=== PATIENT | female | born 1940 | race Caucasian/White ===

== ENCOUNTER 2017-09-06 12:41 | Inpatient (IN) ==
[2017-09-06] MEDS ORDERED: 0.9 % Sodium Chloride 1,000 ML IVC ONE (14:49)
--- NOTE | 2017-09-06 14:54 | Emergency Department Note ---
Disposition Clinical Impression: Colitis, Clostridium difficile infection Pancreatitis Qualifiers: Chronicity: acute Disposition: Admitted As Inpatient Condition: Good Referrals: Kaycee Wu MD [Primary Care Provider] - Forms: ED Satisfaction Letter Time of Disposition: 18:04 General Adult HPI - General Chief complaint: ED Nausea/Vomiting/Diarrhea Stated complaint: "c-diff", diarrhea Time Seen by Provider: 09/06/17 14:22 Source: patient, family Mode of arrival: ambulatory Limitations: no limitations Nursing Notes Reviewed: Yes Vital Signs Reviewed: Yes - History of Present Illness HPI Narrative: Patient presents to the ED with the chief complaint of continued diarrhea. Patient states that she was diagnosed with C. difficile about a month ago and is currently on her third round of antibiotics and she is currently taking by mouth vancomycin. She c/o epigastric pain but this has been ongoing and is not worse than usual but has not been evaluated she states. She also states that the diarrhea is just not going away. Some days, whenever it started. She was having diarrhea every 10-15 minutes. She states most days she has it 7-8 times , often not being able to make it to the bathroom. She has not had any imaging of her abdomen other than an x-ray. She states that she was on some antibiotics a few months ago and they think that is where it came from, but she has tested positive in her stool for C. difficile. She denies any fever but has had chills and sweats. No chest pain or shortness of breath different from her baseline. Again, she denies any abdominal pain other than ongoing epigastric pain. She is nauseated at times with a few episodes of emesis, non- feculent. No dysuria or hematuria. She states she just feels really weak and rundown very tired all the time. Pain Scale: 0 - Related Data Home Medications Medication Instructions Recorded Confirmed Aspirin 81 mg PO DAILY 09/15/16 02/13/17 Clopidogrel [Plavix] 75 mg PO DAILY 09/15/16 02/13/17 Omeprazole [PriLOSEC] 40 mg PO DAILY 09/15/16 02/13/17 Ranolazine [Ranexa] 1,000 mg PO BID 09/15/16 02/13/17 Cyanocobalamin (Vitamin B-12) 1,000 mcg PO DAILY 02/13/17 02/13/17 [Vitamin B12] Multivit-Min/Iron/Folic/Lutein 1 tab PO DAILY 02/13/17 02/13/17 [Centrum Silver Women Tablet] Nitroglycerin [Nitrostat] 0.4 mg PO Q5M PRN 02/13/17 02/13/17 Vilazodone HCl [Viibryd] 40 mg PO DAILY 02/13/17 02/13/17 Vit A/Vit C/Vit E/Zinc/Copper 1 tab PO DAILY 02/13/17 02/13/17 [Preservision Areds Tablet] Vancomycin HCl 125 mg PO QID 09/06/17 09/06/17 Previous Rx's Medication Instructions Recorded OxyCODONE/APAP 10/325 [Percocet 1 each PO Q6HR PRN #26 tablet 02/13/17 10/325 MG] Allergies Allergy/AdvReac Type Severity Reaction Status Date / Time prednisone Allergy Swelling Verified 09/06/17 14:39 of Lip/Tongue/Throat IVP DYE AdvReac See Uncoded 09/06/17 14:39 Comments Review of Systems: As reviewed in the HPI. All other systems reviewed are negative or normal. Past Medical History - Past Medical History Attestation: Yes The following information was validated with the patient. 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 Absent: Non-Tender, guarding, rebound, rigidity Abdominal tenderness: Present: epigastrium, mild - Extremities Exam Extremities exam: Present: normal inspection, full ROM. Absent: tenderness, pedal edema - Neurological Exam Neurological exam: Present: alert, oriented X3 - Psychiatric Psychiatric exam: Present: normal affect, normal mood - Skin Skin exam: Present: warm, dry, intact, normal color Course Course Narrative: Very well-appearing 71 yo female complaining of C. difficile. We will order labs and a CT of her abdomen and pelvis with oral contrast. Her abdomen is distended, but it is not tympanic and it is soft. Patient will likely need to be admitted as she does look frail and is complaining of weakness and fatigue and epigastric pain on top of her chronic diarrhea. may need ID consult - Reevaluation(s) Reevaluation #1: Patient's lab work shows pancreatitis, which is consistent with her exam. Also , mild colitis. We will admit her to the hospitalist service for inpatient. Infectious disease consult, as well as treatment for pancreatitis. Patient agreeable with plan Patient accepted for admission. Vital Signs Temperature 98.1 F 09/06/17 13:14 Pulse Rate 80 09/06/17 13:14 Respiratory Rate 16 09/06/17 13:14 Blood Pressure 102/65 09/06/17 13:14 O2 Sat by Pulse Oximetry 97 09/06/17 13:14 Temperature 98.1 F 09/06/17 13:14 Pulse Rate 71 09/06/17 17:36 Respiratory Rate 20 09/06/17 17:36 Blood Pressure 146/58 09/06/17 17:36 O2 Sat by Pulse Oximetry 97 09/06/17 17:36 Oxygen Delivery Oxygen Delivery Room Air Medical Decision Making - Lab Data Result diagrams: 09/06/17 15:10 09/06/17 15:10 Lab Results 09/06/17 09/06/17 09/06/17 Range/Units 15:10 15:10 15:10 WBC 6.2 (4.3-11.1) K/mcL RBC 3.85 (3.82-4.97) M/mcL Hgb 12.8 (11.5-15.4) g/dL Hct 37.7 (35.3-44.9) % MCV 97.9 (83.0-100.0) fL MCH 33.2 (28.0-33.3) pg MCHC 34.0 (31.6-35.5) g/dL RDW 12.6 (11.5-14.5) % Plt Count 214 (140-400) K/mcL MPV 10.0 (9.4-12.4) fL Immature Gran % 0.3 (0-4) % Seg Neutrophils % 62.0 % Lymphocytes % 31.9 % Monocytes % 5.2 % Eosinophils % 0.0 % Basophils % 0.6 % Neutrophils # 3.8 (1.6-8.9) K/mcL Lymphocytes # 2.0 (0.6-4.6) K/mcL Monocytes # 0.3 (0.0-1.3) K/mcL Eosinophils # 0.0 (0.0-0.6) K/mcL Basophils # 0.0 (0.0-0.2) K/mcL Sodium 140 (136-145) mEq/L Potassium 4.1 (3.5-5.1) mEq/L Chloride 105 (98-107) mEq/L Carbon Dioxide 28 (23-29) mEq/L BUN 12 (8-23) mg/dL Creatinine 0.93 (0.60-1.20) mg/dL Est GFR ( Amer) > 60 (> 60) Est GFR (Non-Af Amer) 59 L (> 60) BUN/Creatinine Ratio 13 (6-26) Glucose 102 (70-105) mg/dL Calculated Osmolality 290 (280-300) Lactic Acid 1.2 (0.5-2.2) mmol/L Calcium 10.0 (8.6-10.3) mg/dL Total Bilirubin 0.5 (0.3-1.0) mg/dL AST 16 (13-39) Units/L ALT 14 (7-52) Units/L Alkaline Phosphatase 103 (34-104) Units/L Troponin I < 0.03 (< 0.04) ng/mL Serum Total Protein 6.8 (6.4-8.9) g/dL Albumin 4.5 (3.5-5.7) g/dL Globulin 2.3 L (2.4-3.5) g/dL Albumin/Globulin Ratio 2.0 (1.1-2.2) Lipase 230 H (11-82) Units/L Urine Color (Yellow) Urine Clarity (Clear) Urine pH (5.0-8.0) pH Units Ur Specific [place] (1.010-1.025) Urine Protein (Neg-Trace) mg/dL Urine Glucose (UA) (Normal) mg/dL Urine Ketones (Negative) mg/dL Urine Blood (Negative) Urine Nitrite (Negative) Urine Bilirubin (Negative) Urine Urobilinogen (Normal) mg/dL Ur Leukocyte Esterase (Negative) Ur Culture Indicated? (NO) 09/06/17 Range/Units 16:05 WBC (4.3-11.1) K/mcL RBC (3.82-4.97) M/mcL Hgb (11.5-15.4) g/dL Hct (35.3-44.9) % MCV (83.0-100.0) fL MCH (28.0-33.3) pg MCHC (31.6-35.5) g/dL RDW (11.5-14.5) % Plt Count (140-400) K/mcL MPV (9.4-12.4) fL Immature Gran % (0-4) % Seg Neutrophils % % Lymphocytes % % Monocytes % % Eosinophils % % Basophils % % Neutrophils # (1.6-8.9) K/mcL Lymphocytes # (0.6-4.6) K/mcL Monocytes # (0.0-1.3) K/mcL Eosinophils # (0.0-0.6) K/mcL Basophils # (0.0-0.2) K/mcL Sodium (136-145) mEq/L Potassium (3.5-5.1) mEq/L Chloride (98-107) mEq/L Carbon Dioxide (23-29) mEq/L BUN (8-23) mg/dL Creatinine (0.60-1.20) mg/dL Est GFR ( Amer) (> 60) Est GFR (Non-Af Amer) (> 60) BUN/Creatinine Ratio (6-26) Glucose (70-105) mg/dL Calculated Osmolality (280-300) Lactic Acid (0.5-2.2) mmol/L Calcium (8.6-10.3) mg/dL Total Bilirubin (0.3-1.0) mg/dL AST (13-39) Units/L ALT (7-52) Units/L Alkaline Phosphatase (34-104) Units/L Troponin I (< 0.04) ng/mL Serum Total Protein (6.4-8.9) g/dL Albumin (3.5-5.7) g/dL Globulin (2.4-3.5) g/dL Albumin/Globulin Ratio (1.1-2.2) Lipase (11-82) Units/L Urine Color Yellow (Yellow) Urine Clarity Clear (Clear) Urine pH 6.5 (5.0-8.0) pH Units Ur Specific [place] 1.010 (1.010-1.025) Urine Protein Negative (Neg-Trace) mg/dL Urine Glucose (UA) Normal (Normal) mg/dL Urine Ketones Negative (Negative) mg/dL Urine Blood Negative (Negative) Urine Nitrite Negative (Negative) Urine Bilirubin Negative (Negative) Urine Urobilinogen Normal (Normal) mg/dL Ur Leukocyte Esterase Negative (Negative) Ur Culture Indicated? NO (NO) S.B.Timothy - Leeanna Situation: Demographics, MOA Background: Presenting Complaint, Relevant PMH, Meds, & Allergies Assessment: Vital Signs, Course and respsone to treatment, Exam Concerns, Patient/Family Expectation, Pertinant Lab Results, Outstanding Labs Recommendation: Recommendation based on pending studies, treatments, or consults S.B.ASadie Report Given to: Jerry Durán Repor Time: 18:05
[2017-09-06 15:32] LABS: Basophils % 0.6 %; Hematocrit 37.7 % (35.3-44.9); Hemoglobin 12.8 g/dL (11.5-15.4); Immature Granulocytes % 0.3 % (0-4); Lymphocytes % 31.9 %; Mean Corpuscular Hemoglobin 33.2 pg (28.0-33.3); Mean Corpuscular Volume 97.9 fL (83.0-100.0); Monocytes # 0.3 K/mcL (0.0-1.3); Monocytes % 5.2 %; Neutrophils # 3.8 K/mcL (1.6-8.9); Platelet Count 214 K/mcL (140-400); Red Blood Count 3.85 M/mcL (3.82-4.97); Red Cell Distribution Width 12.6 % (11.5-14.5)
[2017-09-06 15:47] LABS: Alanine Aminotransferase 14 Units/L (7-52); Albumin 4.5 g/dL (3.5-5.7); Alkaline Phosphatase 103 Units/L (34-104); Aspartate Amino Transferase 16 Units/L (13-39); BUN/Creatinine Ratio 13 (6-26); Bilirubin,Total 0.5 mg/dL (0.3-1.0); Blood Urea Nitrogen 12 mg/dL (8-23); Carbon Dioxide 28 mEq/L (23-29); Chloride 105 mEq/L (98-107); Globulin 2.3 g/dL (2.4-3.5); Glucose 102 mg/dL (70-105); Lipase 230 Units/L (11-82); Osmolality,Calculated 290 (280-300); Potassium 4.1 mEq/L (3.5-5.1); Sodium 140 mEq/L (136-145); Total Protein 6.8 g/dL (6.4-8.9); Troponin I < 0.03 ng/mL (< 0.04); eGFR For African Americans > 60 (> 60); eGFR For Non-African Americans 59 (> 60)
[2017-09-06 16:15] LABS: Bilirubin,Urine Negative (Negative); Blood,Urine Negative (Negative); Clarity,Urine Clear (Clear); Color,Urine Yellow (Yellow); Glucose,Urine (UA) Normal (Normal); Ketones,Urine Negative (Negative); Leukocyte Esterase,Urine Negative (Negative); Nitrite,Urine Negative (Negative); PH,Urine 6.5 pH Units (5.0-8.0); Protein,Urine Negative (Neg-Trace); Urobilinogen,Urine Normal (Normal)
[2017-09-06] MEDS ORDERED: 0.9 % Sodium Chloride 500 ML IVC ONE (16:25)
--- NOTE | 2017-09-06 18:17 | Emergency Department Note ---
Disposition Clinical Impression: Colitis, Clostridium difficile infection Pancreatitis Qualifiers: Chronicity: acute Disposition: Admitted As Inpatient Condition: Good Referrals: Kaycee Wu MD [Primary Care Provider] - Forms: ED Satisfaction Letter General Adult HPI - General Chief complaint: ED Nausea/Vomiting/Diarrhea Stated complaint: "c-diff", diarrhea Time Seen by Provider: 09/06/17 14:22 Source: patient, family Mode of arrival: ambulatory Limitations: no limitations Nursing Notes Reviewed: Yes Vital Signs Reviewed: Yes - History of Present Illness Pain Scale: 0 - Related Data Home Medications Medication Instructions Recorded Confirmed Aspirin 81 mg PO DAILY 09/15/16 02/13/17 Clopidogrel [Plavix] 75 mg PO DAILY 09/15/16 02/13/17 Omeprazole [PriLOSEC] 40 mg PO DAILY 09/15/16 02/13/17 Ranolazine [Ranexa] 1,000 mg PO BID 09/15/16 02/13/17 Cyanocobalamin (Vitamin B-12) 1,000 mcg PO DAILY 02/13/17 02/13/17 [Vitamin B12] Multivit-Min/Iron/Folic/Lutein 1 tab PO DAILY 02/13/17 02/13/17 [Centrum Silver Women Tablet] Nitroglycerin [Nitrostat] 0.4 mg PO Q5M PRN 02/13/17 02/13/17 Vilazodone HCl [Viibryd] 40 mg PO DAILY 02/13/17 02/13/17 Vit A/Vit C/Vit E/Zinc/Copper 1 tab PO DAILY 02/13/17 02/13/17 [Preservision Areds Tablet] Vancomycin HCl 125 mg PO QID 09/06/17 09/06/17 Previous Rx's Medication Instructions Recorded OxyCODONE/APAP 10/325 [Percocet 1 each PO Q6HR PRN #26 tablet 02/13/17 10/325 MG] Allergies Allergy/AdvReac Type Severity Reaction Status Date / Time prednisone Allergy Swelling Verified 09/06/17 14:39 of Lip/Tongue/Throat IVP DYE AdvReac See Uncoded 09/06/17 14:39 Comments Past Medical History - Past Medical History Medical history: Reports: coronary artery disease, DVT, GERD, hyperlipidemia, hypertension, peripheral artery disease Psychiatric history: Reports: anxiety 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 - Social History Smoking Status: Current every day smoker Smokeless Tobacco Status: No Alcohol use: Reports: none Drug use: Reports: none Physical Exam - General Limitations: no limitations General appearance: alert, in no apparent distress Course Vital Signs Temperature 98.1 F 09/06/17 13:14 Pulse Rate 80 09/06/17 13:14 Respiratory Rate 16 09/06/17 13:14 Blood Pressure 102/65 09/06/17 13:14 O2 Sat by Pulse Oximetry 97 09/06/17 13:14 Temperature 98.1 F 09/06/17 13:14 Pulse Rate 73 09/06/17 18:00 Respiratory Rate 20 09/06/17 18:00 Blood Pressure 132/61 09/06/17 18:00 O2 Sat by Pulse Oximetry 98 09/06/17 18:00 Oxygen Delivery Oxygen Delivery Room Air Medical Decision Making - Lab Data Result diagrams: 09/06/17 15:10 09/06/17 15:10 Lab Results 09/06/17 09/06/17 09/06/17 Range/Units 15:10 15:10 15:10 WBC 6.2 (4.3-11.1) K/mcL RBC 3.85 (3.82-4.97) M/mcL Hgb 12.8 (11.5-15.4) g/dL Hct 37.7 (35.3-44.9) % MCV 97.9 (83.0-100.0) fL MCH 33.2 (28.0-33.3) pg MCHC 34.0 (31.6-35.5) g/dL RDW 12.6 (11.5-14.5) % Plt Count 214 (140-400) K/mcL MPV 10.0 (9.4-12.4) fL Immature Gran % 0.3 (0-4) % Seg Neutrophils % 62.0 % Lymphocytes % 31.9 % Monocytes % 5.2 % Eosinophils % 0.0 % Basophils % 0.6 % Neutrophils # 3.8 (1.6-8.9) K/mcL Lymphocytes # 2.0 (0.6-4.6) K/mcL Monocytes # 0.3 (0.0-1.3) K/mcL Eosinophils # 0.0 (0.0-0.6) K/mcL Basophils # 0.0 (0.0-0.2) K/mcL Sodium 140 (136-145) mEq/L Potassium 4.1 (3.5-5.1) mEq/L Chloride 105 (98-107) mEq/L Carbon Dioxide 28 (23-29) mEq/L BUN 12 (8-23) mg/dL Creatinine 0.93 (0.60-1.20) mg/dL Est GFR ( Amer) > 60 (> 60) Est GFR (Non-Af Amer) 59 L (> 60) BUN/Creatinine Ratio 13 (6-26) Glucose 102 (70-105) mg/dL Calculated Osmolality 290 (280-300) Lactic Acid 1.2 (0.5-2.2) mmol/L Calcium 10.0 (8.6-10.3) mg/dL Total Bilirubin 0.5 (0.3-1.0) mg/dL AST 16 (13-39) Units/L ALT 14 (7-52) Units/L Alkaline Phosphatase 103 (34-104) Units/L Troponin I < 0.03 (< 0.04) ng/mL Serum Total Protein 6.8 (6.4-8.9) g/dL Albumin 4.5 (3.5-5.7) g/dL Globulin 2.3 L (2.4-3.5) g/dL Albumin/Globulin Ratio 2.0 (1.1-2.2) Lipase 230 H (11-82) Units/L Urine Color (Yellow) Urine Clarity (Clear) Urine pH (5.0-8.0) pH Units Ur Specific [place] (1.010-1.025) Urine Protein (Neg-Trace) mg/dL Urine Glucose (UA) (Normal) mg/dL Urine Ketones (Negative) mg/dL Urine Blood (Negative) Urine Nitrite (Negative) Urine Bilirubin (Negative) Urine Urobilinogen (Normal) mg/dL Ur Leukocyte Esterase (Negative) Ur Culture Indicated? (NO) 09/06/17 Range/Units 16:05 WBC (4.3-11.1) K/mcL RBC (3.82-4.97) M/mcL Hgb (11.5-15.4) g/dL Hct (35.3-44.9) % MCV (83.0-100.0) fL MCH (28.0-33.3) pg MCHC (31.6-35.5) g/dL RDW (11.5-14.5) % Plt Count (140-400) K/mcL MPV (9.4-12.4) fL Immature Gran % (0-4) % Seg Neutrophils % % Lymphocytes % % Monocytes % % Eosinophils % % Basophils % % Neutrophils # (1.6-8.9) K/mcL Lymphocytes # (0.6-4.6) K/mcL Monocytes # (0.0-1.3) K/mcL Eosinophils # (0.0-0.6) K/mcL Basophils # (0.0-0.2) K/mcL Sodium (136-145) mEq/L Potassium (3.5-5.1) mEq/L Chloride (98-107) mEq/L Carbon Dioxide (23-29) mEq/L BUN (8-23) mg/dL Creatinine (0.60-1.20) mg/dL Est GFR ( Amer) (> 60) Est GFR (Non-Af Amer) (> 60) BUN/Creatinine Ratio (6-26) Glucose (70-105) mg/dL Calculated Osmolality (280-300) Lactic Acid (0.5-2.2) mmol/L Calcium (8.6-10.3) mg/dL Total Bilirubin (0.3-1.0) mg/dL AST (13-39) Units/L ALT (7-52) Units/L Alkaline Phosphatase (34-104) Units/L Troponin I (< 0.04) ng/mL Serum Total Protein (6.4-8.9) g/dL Albumin (3.5-5.7) g/dL Globulin (2.4-3.5) g/dL Albumin/Globulin Ratio (1.1-2.2) Lipase (11-82) Units/L Urine Color Yellow (Yellow) Urine Clarity Clear (Clear) Urine pH 6.5 (5.0-8.0) pH Units Ur Specific [place] 1.010 (1.010-1.025) Urine Protein Negative (Neg-Trace) mg/dL Urine Glucose (UA) Normal (Normal) mg/dL Urine Ketones Negative (Negative) mg/dL Urine Blood Negative (Negative) Urine Nitrite Negative (Negative) Urine Bilirubin Negative (Negative) Urine Urobilinogen Normal (Normal) mg/dL Ur Leukocyte Esterase Negative (Negative) Ur Culture Indicated? NO (NO) Attestation Statement - Attestation Attestation: I examined this patient and my medical decision-making was reviewed with the Resident Physician, Dr. Gerard. I agree with the documented findings, disposition and treatment plan as described except to the extent set forth below. Patient is a 77-year-old white female with a history of recurrent C. difficile diarrhea who is on her third round of medication currently oral vancomycin who presents the emergency department with ongoing frequent loose watery stools without blood and left-sided and epigastric abdominal pain. Patient denies any fevers or chills, denies any urinary symptoms or flank pain, no other associated symptoms. Patient states she has had a decreased appetite but she thinks it has more to do with the fact that it worsens or diarrhea. I agree with patient's physical exam findings as documented. Vital signs are stable patient's in no acute distress. Patient had lab evaluation and CT abdomen and pelvis with oral contrast. Patient's labs are all within normal limits with the exception of an elevated lipase. Patient also has a CT that shows findings consistent with colitis. Patient will be admitted for further evaluation and management for acute pancreatitis as well as ongoing colitis.
--- NOTE | 2017-09-06 20:33 | Internal Med History&Physical ---
Date of Encounter: 09/06/17 Time of Encounter: 20:29 Internal Medicine - H&P: HPI Admitted From: Home Plans for Post Hospital Care: Home History of present illness: Ms. Beltran is a 77 year old female with history of CAD, peripheral vascular disease came to emergency room with persistent diarrhea and mild epigastric pain for more than a month. She was diagnosed C. difficile and this is her third round of antibiotics with oral vancomycin. She never had any improvement in her symptom especially diarrhea and a started to feel generalized weakness therefore decided to come to ER. She stated average frequency of diarrhea 5-8 per day and sometimes even every 15-20 minute. In the ER vitals are stable and initial lab with slight raised lipase and CT abdomen with mild colitis. Patient denies vomiting, chest pain, shortness of breath, headache, dizziness, urinary complaint. There nausea intermittently. Complained of generalized weakness and tiredness Past Med Surg Social Fam HX - Past Medical History Medical history: coronary artery disease, DVT, GERD, hyperlipidemia, hypertension, peripheral artery disease Psychiatric history: anxiety - Social History Smoking Status: Current every day smoker Smokeless Tobacco Status: No Alcohol use: none Drug use: none Internal Medicine - H&P: Meds Aspirin 81 mg PO DAILY 09/15/16 [History] Clopidogrel [Plavix] 75 mg PO DAILY 09/15/16 [History] Omeprazole [PriLOSEC] 40 mg PO DAILY 09/15/16 [History] Ranolazine [Ranexa] 1,000 mg PO BID 09/15/16 [History] Cyanocobalamin (Vitamin B-12) [Vitamin B12] 1,000 mcg PO DAILY 02/13/17 [History ] Multivit-Min/Iron/Folic/Lutein [Centrum Silver Women Tablet] 1 tab PO DAILY 07/28 [History] Nitroglycerin [Nitrostat] 0.4 mg PO Q5M PRN 02/13/17 [History] Vilazodone HCl [Viibryd] 40 mg PO DAILY 02/13/17 [History] Donepezil [Aricept] 10 mg PO HS 09/06/17 [History] Vancomycin HCl 125 mg PO TAPER MDD SEE NOTE 09/06/17 [History] 3 Allergy/AdvReac Type Severity Reaction Status Date / Time prednisone Allergy Swelling Verified 09/06/17 18:26 of Lip/Tongue/Throat IVP DYE AdvReac See Uncoded 09/06/17 14:39 Comments All Systems PM: A 10-system review of systems was performed and is negative for pertinent findings except as documented above in the HPI. - Constitutional Vitals: Temp Pulse Resp BP Pulse Ox 98.2 F 73 18 136/56 98 09/06/17 20:03 09/06/17 18:00 09/06/17 20:03 09/06/17 20:03 09/06/17 18:00 Exam: General appearance: No acute distress, A&O X 3. Looks tired. at bedside. Head exam: Atraumatic Eye exam: EOMI, PERRLA ENT exam: Moist oral mucosa Neck nontender, supple Respiratory exam: Clear to auscultation bilaterally Cardiovascular exam: Regular rate and rhythm, no systolic murmur Abdominal exam: Soft, mild epigastric pain, nondistended, positive bowel sounds Extremities exam: No calf tenderness, no pedal edema Present: Skin-no rash, warm, dry, intact Neurological exam: Alert, awake, oriented 3, CN II-XII intact, no focal deficits. No facial droop. Normal speech. Feel too weak to walk Internal Med - H&P Results - Labs CBC & Chem 7: 09/06/17 15:10 09/06/17 15:10 - Assessment and plan (1) Clostridium difficile infection Current Visit: Yes Status: Acute Assessment and plan: Persistent diarrhea. Third round of antibiotic. Becoming symptomatic. Will admit patient for symptomatic treatment such as nothing by mouth and eventually change to clear liquid if tolerated, IV fluid, continuation of oral vancomycin 125 mg 4 times in a day and a started Flagyl 500 laser on 3 times in a day. Will consult ID specialist in the morning by [facility] physician. GI panel ordered (2) Pancreatitis Current Visit: Yes Status: Acute Assessment and plan: Mild. Patient has epigastric pain. CT reviewed with mild colitis. No acute abdomen. Symptomatic treatment continuation with nothing by mouth IV fluid. Close monitoring. Qualifiers: Chronicity: acute Pancreatitis type: unspecified pancreatitis type Qualified Code(s): K85.90 - Acute pancreatitis without necrosis or infection, unspecified (3) CAD (coronary artery disease) Current Visit: Yes Status: Chronic Assessment and plan: No active symptoms. Stable. Continue home medicine. Qualifiers: Coronary Disease-Associated Artery/Lesion type: unspecified vessel or lesion type Associated angina: without angina Qualified Code(s): I25.10 - Atherosclerotic heart disease of [place] coronary artery without angina pectoris (4) DVT prophylaxis Current Visit: Yes Status: Acute Assessment and plan: SCDs - Time Spent With Patient Total time spent is greater than 50% in coordination of care (as documented) at patient's floor/unit and/or counseling patient: 25 - 35 minutes
[2017-09-06] MEDS ORDERED: Naloxone 0.4 MG/ML INJ IVP PRN (23:37)
[2017-09-07] MEDS: Ranolazine 500 MG TAB.ER.12H PO SCH ×3 (01:17→21:04)
[2017-09-07] MEDS: metroNIDAZOLE 500 MG TABLET PO SCH ×3 (01:17→14:16)
[2017-09-07] MEDS: Vancomycin Oral Soln 250 MG/5 ML UDC PO SCH ×3 (01:19→13:50)
[2017-09-07] MEDS: 0.9 % Sodium Chloride 1,000 ML IVC SCH ×2 (01:20→18:39)
[2017-09-07 06:02] LABS: Basophils % 0.4 %; Hematocrit 34.8 % (35.3-44.9); Hemoglobin 11.7 g/dL (11.5-15.4); Immature Granulocytes % 0.3 % (0-4); Lymphocytes # 2.1 K/mcL (0.6-4.6); Lymphocytes % 30.8 %; Mean Corpuscular HGB Conc 33.6 g/dL (31.6-35.5); Mean Corpuscular Hemoglobin 33.8 pg (28.0-33.3); Mean Corpuscular Volume 100.6 fL (83.0-100.0); Monocytes # 0.3 K/mcL (0.0-1.3); Monocytes % 4.5 %; Neutrophils # 4.4 K/mcL (1.6-8.9); Platelet Count 205 K/mcL (140-400); Red Blood Count 3.46 M/mcL (3.82-4.97); Red Cell Distribution Width 12.8 % (11.5-14.5)
[2017-09-07 06:22] LABS: BUN/Creatinine Ratio 10 (6-26); Blood Urea Nitrogen 8 mg/dL (8-23); Carbon Dioxide 26 mEq/L (23-29); Chloride 109 mEq/L (98-107); Glucose 91 mg/dL (70-105); Osmolality,Calculated 292 (280-300); Potassium 3.7 mEq/L (3.5-5.1); Sodium 142 mEq/L (136-145); eGFR For African Americans > 60 (> 60); eGFR For Non-African Americans > 60 (> 60)
[2017-09-07] MEDS: Aspirin 81 MG TAB.CHEW PO SCH (09:14)
[2017-09-07] MEDS: Multivit/Ca/Min/Fe/FA 1 TAB TABLET PO SCH (09:14)
[2017-09-07] MEDS: Cyanocobalamin (B-12) 1,000 MCG TABLET PO SCH (09:15)
[2017-09-07] MEDS: (Vilazodone Hcl [Viibryd] 40 MG) PO SCH (09:23)
[2017-09-07 11:47] LABS: Adenovirus F 40/41 PCR Not detected (Not detect); Astrovirus PCR Not detected (Not detect); C.difficile Toxin A/B by PCR Not detected (Not detect); Campylobacter by PCR Not detected (Not detect); Cryptosporidium by PCR Not detected (Not detect); Cyclospora cayetanensis PCR Not detected (Not detect); E. coli O157 by PCR Not detected (Not detect); Entamoeba histolytica PCR Not detected (Not detect); Enteroaggregative E.coli(EAEC) Not detected (Not detect); Enteropathogenic E.coli(EPEC) Not detected (Not detect); Enterotoxigenic E.coli (ETEC) Not detected (Not detect); Giardia lamblia PCR Not detected (Not detect); Norovirus GI/GII PCR Not detected (Not detect); Plesiomonas shigelloides PCR Not detected (Not detect); Rotavirus A PCR Not detected (Not detect); Salmonella PCR Not detected (Not detect); Sapovirus PCR Not detected (Not detect); Shig/EnteroinvasiveE coli EIEC Not detected (Not detect); Shigalike tox-prod E coli STEC Not detected (Not detect); Vibrio PCR Not detected (Not detect); Vibrio cholerae PCR Not detected (Not detect); Yersinia enterocolitica PCR Not detected (Not detect)
[2017-09-07] MEDS: Lactobacillus 1 EACH CAP.SPRINK PO SCH ×2 (14:16→21:04)
--- NOTE | 2017-09-07 15:32 | Internal Med Progress Note ---
Date of Encounter: 09/07/17 Time of Encounter: 15:29 - Assessment and plan (1) Pancreatitis Current Visit: Yes Status: Acute Assessment and plan: Mild. No pain at this time, some nausea. CT reviewed with mild colitis. No acute abdomen. Symptomatic treatment continuation with nothing by mouth IV fluid. Close monitoring. Qualifiers: Chronicity: acute Pancreatitis type: unspecified pancreatitis type Acute pancreatitis complication: unspecified Qualified Code(s): K85.90 - Acute pancreatitis without necrosis or infection, unspecified (2) Clostridium difficile infection Current Visit: Yes Status: Acute Assessment and plan: Persistent diarrhea. Previouslytreated for c diff Third round of antibiotic. No white count no fever, mild colitis on CT of abd- stool negative for C diff. Had a curbside consult with Dr Bowman, concerning diarrhea- feels thst it is secondary to cholecystectomy- recommends cholestyramine TID. (3) CAD (coronary artery disease) Current Visit: Yes Status: Chronic Assessment and plan: No active symptoms. Stable. Continue home medicine. Qualifiers: Coronary Disease-Associated Artery/Lesion type: unspecified vessel or lesion type [place] vs. transplanted heart: [place] heart Associated angina: without angina Qualified Code(s): I25.10 - Atherosclerotic heart disease of [place] coronary artery without angina pectoris (4) Diarrhea Current Visit: Yes Status: Acute Assessment and plan: Recently treated for C diff x 2 - completed ATB - cont with diarrhea - no white count no fever CT abd shows mild colitis- stool negative for C diff curbside consult with Dr Bowman advised- to place on cholestyramine TID- diarrhea related to cholecystectomy, will cont with culturelle IVF Qualifiers: Diarrhea type: unspecified type Qualified Code(s): R19.7 - Diarrhea, unspecified (5) Colitis Current Visit: Yes Status: Acute Assessment and plan: C diff negative GI panel negative - bowel rest NPO for now , IVF (6) DVT prophylaxis Current Visit: Yes Status: Acute Assessment and plan: SCDs - Time Spent With Patient Total time spent is greater than 50% in coordination of care (as documented) at patient's floor/unit and/or counseling patient: - Subjective Interval history: I have seen and examined the patient at bedside. Has had 3 small loose stools today. States that she has had diarrhea for approx 3 weeks, she originally tested positive cdiff and completed treatment x2. She denies any abd pain she does have some nausea no vomiting - Constitutional Vitals: Temp Pulse Resp BP Pulse Ox 97.7 F 62 16 102/48 97 09/07/17 15:09 09/07/17 15:09 09/07/17 15:09 09/07/17 15:09 09/07/17 15:09 General appearance: Present: A&O X 3 - Head Head exam: Present: atraumatic, normocephalic - Eye Eye exam: Present: PERRL, conjuntiva pink, sclera anicteric Pupils: Present: PERRL - Neck Neck exam general surgery: Present: supple, trachea midline. Absent: lymphadenopathy - Respiratory Respiratory exam: Present: CTAB. Absent: accessory muscle use, rales, rhonchi, wheezes - Cardiovascular Cardiovascular exam: Present: RRR, +S1, +S2. Absent: diastolic murmur, gallop, rubs, systolic murmur - GI/Abdominal GI/Abdominal exam: Present: distended, normal bowel sounds, soft, no peritoneal signs. Absent: tenderness - Extremities Exam Extremities exam: Present: warm, radial pulses palpable and symmetrical. Absent : calf tenderness, cyanotic, pedal edema - Neurological Exam Neurological exam: Present: CN II-XII intact, oriented X3, no focal deficits. Absent: pronater drift, facial droop, speech deficit - Skin Skin exam: Present: dry, intact Internal Medicine: Result - Labs CBC & Chem 7: 09/07/17 05:30 09/07/17 05:30 Consult Discharge Plan - Plan Referrals: Kaycee Wu MD [Primary Care Provider] -
[2017-09-07] MEDS: Cholestyramine 4 GM POWD.PACK PO SCH (17:33)
[2017-09-08] MEDS: Cholestyramine 4 GM POWD.PACK PO SCH ×3 (06:04→16:07)
[2017-09-08 09:19] LABS: Basophils % 0.7 %; Hematocrit 29.5 % (35.3-44.9); Immature Granulocytes % 0.2 % (0-4); Lymphocytes # 1.5 K/mcL (0.6-4.6); Lymphocytes % 33.3 %; Mean Corpuscular HGB Conc 33.9 g/dL (31.6-35.5); Mean Corpuscular Hemoglobin 33.6 pg (28.0-33.3); Mean Platelet Volume 10.1 fL (9.4-12.4); Monocytes # 0.3 K/mcL (0.0-1.3); Monocytes % 6.3 %; Neutrophils # 2.7 K/mcL (1.6-8.9); Nucleated Red Blood Cells 0.9 /100 WBC (0); Platelet Count 175 K/mcL (140-400); Red Blood Count 2.98 M/mcL (3.82-4.97); Red Cell Distribution Width 12.6 % (11.5-14.5); Segmented Neutrophils % 59.5 %
[2017-09-08] MEDS: Multivit/Ca/Min/Fe/FA 1 TAB TABLET PO SCH (09:24)
[2017-09-08] MEDS: (Vilazodone Hcl [Viibryd] 40 MG) PO SCH (09:24)
[2017-09-08] MEDS: Aspirin 81 MG TAB.CHEW PO SCH (09:24)
[2017-09-08] MEDS: Ranolazine 500 MG TAB.ER.12H PO SCH ×2 (09:24→21:06)
[2017-09-08] MEDS: Cyanocobalamin (B-12) 1,000 MCG TABLET PO SCH (09:24)
[2017-09-08] MEDS: Lactobacillus 1 EACH CAP.SPRINK PO SCH ×2 (09:24→21:06)
[2017-09-08 09:37] LABS: BUN/Creatinine Ratio 9 (6-26); Blood Urea Nitrogen 7 mg/dL (8-23); Calcium 8.5 mg/dL (8.6-10.3); Carbon Dioxide 25 mEq/L (23-29); Chloride 109 mEq/L (98-107); Glucose 93 mg/dL (70-105); Lipase 22 Units/L (11-82); Osmolality,Calculated 284 (280-300); Potassium 3.7 mEq/L (3.5-5.1); Sodium 138 mEq/L (136-145); eGFR For African Americans > 60 (> 60); eGFR For Non-African Americans > 60 (> 60)
--- NOTE | 2017-09-08 15:13 | Internal Med Progress Note ---
Date of Encounter: 09/08/17 Time of Encounter: 09:00 - Assessment and plan (1) Pancreatitis Current Visit: Yes Status: Acute Assessment and plan: Mild. No pain at this time, some nausea. Lipase has improved CT reviewed with mild colitis. No acute abdomen. Symptomatic treatment, start with clear liquid diets and advance as tolerated Close monitoring. Qualifiers: Chronicity: acute Pancreatitis type: unspecified pancreatitis type Acute pancreatitis complication: unspecified Qualified Code(s): K85.90 - Acute pancreatitis without necrosis or infection, unspecified (2) Clostridium difficile infection Current Visit: Yes Status: Acute Assessment and plan: Persistent diarrhea. Previouslytreated for c diff Third round of antibiotic. No white count no fever, mild colitis on CT of abd- stool negative for C diff. Had a curbside consult with Dr Bowman, concerning diarrhea- feels thst it is secondary to cholecystectomy- recommends cholestyramine TID. Patient is refusing medication. We will consult GI concerning diarrhea nausea (3) CAD (coronary artery disease) Current Visit: Yes Status: Chronic Assessment and plan: No active symptoms. Stable. Continue home medicine. (4) Diarrhea Current Visit: Yes Status: Acute Assessment and plan: Recently treated for C diff x 2 - completed ATB - cont with diarrhea - no white count no fever CT abd shows mild colitis- stool negative for C diff curbside consult with Dr Bowman advised- to place on cholestyramine TID- diarrhea related to cholecystectomy, will cont with culturelle -patient refusing to take cholestyramine started on clear liquid diet advance as tolerated. Will consult GI Qualifiers: Diarrhea type: unspecified type Qualified Code(s): R19.7 - Diarrhea, unspecified (5) Colitis Current Visit: Yes Status: Acute Assessment and plan: C diff negative GI panel negative -will check for occult stool started on clear liquid diet and advance as tolerated (6) DVT prophylaxis Current Visit: Yes Status: Acute Assessment and plan: SCDs - Time Spent With Patient Total time spent is greater than 50% in coordination of care (as documented) at patient's floor/unit and/or counseling patient: - Subjective Interval history: I have seen and examined the patient at bedside. Patient continues to complain of loose stools states she was up all night with diarrhea -nursing reports that patient's refusing to take cholestyramine. Asked patient what she will not take medication states she does not like the taste. Asked patient she has ever had a EGD or colonoscopy she denies. Patient denies any abdominal pain she did eat breakfast this morning and tolerated well however during our conversation patient becomes upset and states she is going to vomit. Lipase has improved. We will continue with diet and advance as tolerated. I will consult GI concerning diarrhea and nausea. Update patient on treatment plan and verbalized understanding - Constitutional Vitals: Temp Pulse Resp BP Pulse Ox 98.5 F 68 16 153/71 94 09/08/17 12:04 09/08/17 12:04 09/08/17 12:04 09/08/17 12:04 09/08/17 12:04 General appearance: Present: A&O X 3 - Head Head exam: Present: atraumatic, normocephalic - Eye Eye exam: Present: PERRL, conjuntiva pink, sclera anicteric Pupils: Present: PERRL - Neck Neck exam general surgery: Present: supple, trachea midline. Absent: lymphadenopathy - Respiratory Respiratory exam: Present: CTAB. Absent: accessory muscle use, rales, rhonchi, wheezes - Cardiovascular Cardiovascular exam: Present: RRR, +S1, +S2. Absent: diastolic murmur, gallop, rubs, systolic murmur - GI/Abdominal GI/Abdominal exam: Present: normal bowel sounds, soft, no peritoneal signs. Absent: distended, tenderness - Extremities Exam Extremities exam: Present: warm, radial pulses palpable and symmetrical. Absent : calf tenderness, cyanotic, pedal edema - Neurological Exam Neurological exam: Present: CN II-XII intact, oriented X3, no focal deficits. Absent: pronater drift, facial droop, speech deficit - Skin Skin exam: Present: dry, intact Internal Medicine: Result - Labs CBC & Chem 7: 09/08/17 08:28 09/08/17 08:28 Labs: Short CBC 09/08/17 Range/Units 08:28 WBC 4.5 (4.3-11.1) K/mcL Hgb 10.0 L D (11.5-15.4) g/dL Hct 29.5 L (35.3-44.9) % Plt Count 175 (140-400) K/mcL Neutrophils # 2.7 (1.6-8.9) K/mcL BMP 09/08/17 08:28 Sodium 138 Potassium 3.7 Chloride 109 H Carbon Dioxide 25 BUN 7 L Creatinine 0.78 Glucose 93 Calcium 8.5 L Consult Discharge Plan - Plan Referrals: Kaycee Wu MD [Primary Care Provider] -
[2017-09-08] MEDS: 0.9 % Sodium Chloride 1,000 ML IVC SCH ×2 (16:16→16:17)
[2017-09-09] MEDS: Cholestyramine 4 GM POWD.PACK PO SCH ×3 (06:00→16:31)
[2017-09-09] MEDS: 0.9 % Sodium Chloride 1,000 ML IVC SCH (06:04)
[2017-09-09 06:36] LABS: Basophils % 0.4 %; Eosinophils % 0.2 %; Hematocrit 30.8 % (35.3-44.9); Hemoglobin 10.5 g/dL (11.5-15.4); Immature Granulocytes % 0.2 % (0-4); Lymphocytes % 36.7 %; Mean Corpuscular HGB Conc 34.1 g/dL (31.6-35.5); Mean Corpuscular Volume 99.7 fL (83.0-100.0); Mean Platelet Volume 10.4 fL (9.4-12.4); Monocytes % 6.1 %; Platelet Count 185 K/mcL (140-400); Red Blood Count 3.09 M/mcL (3.82-4.97); Red Cell Distribution Width 12.5 % (11.5-14.5); Segmented Neutrophils % 56.4 %
[2017-09-09 06:37] LABS: Lymphocytes # 1.9 K/mcL (0.6-4.6); Monocytes # 0.3 K/mcL (0.0-1.3); Neutrophils # 2.9 K/mcL (1.6-8.9); Nucleated Red Blood Cells 0.6 /100 WBC (0)
[2017-09-09 06:44] LABS: BUN/Creatinine Ratio 7 (6-26); Blood Urea Nitrogen 5 mg/dL (8-23); Calcium 8.5 mg/dL (8.6-10.3); Carbon Dioxide 24 mEq/L (23-29); Chloride 114 mEq/L (98-107); Glucose 94 mg/dL (70-105); Osmolality,Calculated 295 (280-300); Potassium 3.6 mEq/L (3.5-5.1); Sodium 144 mEq/L (136-145); eGFR For African Americans > 60 (> 60); eGFR For Non-African Americans > 60 (> 60)
[2017-09-09] MEDS: (Vilazodone Hcl [Viibryd] 40 MG) PO SCH (07:45)
[2017-09-09] MEDS: Lactobacillus 1 EACH CAP.SPRINK PO SCH ×2 (07:48→20:59)
[2017-09-09] MEDS: Ranolazine 500 MG TAB.ER.12H PO SCH ×2 (07:48→20:59)
[2017-09-09] MEDS: Cyanocobalamin (B-12) 1,000 MCG TABLET PO SCH (07:49)
[2017-09-09] MEDS: Aspirin 81 MG TAB.CHEW PO SCH (07:49)
[2017-09-09] MEDS: Multivit/Ca/Min/Fe/FA 1 TAB TABLET PO SCH (07:49)
--- NOTE | 2017-09-09 10:33 | Internal Med Progress Note ---
Date of Encounter: 09/09/17 Time of Encounter: 10:30 - Assessment and plan (1) Pancreatitis Current Visit: Yes Status: Acute Assessment and plan: Improved NO pain N/V tolerating oral intake Lipase has improved CT reviewed with mild colitis. No acute abdomen. Symptomatic treatment, tolerating regular diet. Qualifiers: Chronicity: acute Pancreatitis type: unspecified pancreatitis type Acute pancreatitis complication: unspecified Qualified Code(s): K85.90 - Acute pancreatitis without necrosis or infection, unspecified (2) Clostridium difficile infection Current Visit: Yes Status: Acute Assessment and plan: Persistent diarrhea. Previouslytreated for c diff Third round of antibiotic. No white count no fever, mild colitis on CT of abd- stool negative for C diff. Had a curbside consult with Dr Bowman, concerning diarrhea- feels thst it is secondary to cholecystectomy- recommends cholestyramine TID. Patient is refusing medication. We will consult GI concerning diarrhea nausea (3) CAD (coronary artery disease) Current Visit: Yes Status: Chronic Assessment and plan: No active symptoms. Stable. Continue home medicine. (4) Diarrhea Current Visit: Yes Status: Acute Assessment and plan: Recently treated for C diff x 2 - completed ATB - cont with diarrhea - no white count no fever CT abd shows mild colitis- stool negative for C diff curbside consult with Dr Bowman advised- to place on cholestyramine TID- diarrhea related to cholecystectomy, will cont with culturelle -patient refusing to take cholestyramine started on clear liquid diet advance as tolerated. Will consult GI- NPO after midnight for possible procedure in AM Qualifiers: Diarrhea type: unspecified type Qualified Code(s): R19.7 - Diarrhea, unspecified (5) Colitis Current Visit: Yes Status: Acute Assessment and plan: C diff negative GI panel negative - occult stool negative tolerating regular diet (6) DVT prophylaxis Current Visit: Yes Status: Acute Assessment and plan: SCDs - Time Spent With Patient Total time spent is greater than 50% in coordination of care (as documented) at patient's floor/unit and/or counseling patient: - Subjective Interval history: I have seen and examined the patient at bedside. Continue to have loose stools , states has had only one today. Denies any abd pain tolerated breakfast, no N/ V at this time. We will make NPO after midnight GI consulted. I reveiwed plan with patient and verbalized understanding - Constitutional Vitals: Temp Pulse Resp BP Pulse Ox 97.9 F 65 18 122/56 97 09/09/17 07:13 09/09/17 07:13 09/09/17 07:13 09/09/17 07:13 09/09/17 07:51 General appearance: Present: A&O X 3 - Head Head exam: Present: atraumatic, normocephalic - Eye Eye exam: Present: PERRL, conjuntiva pink, sclera anicteric Pupils: Present: PERRL - Neck Neck exam general surgery: Present: supple, trachea midline. Absent: lymphadenopathy - Respiratory Respiratory exam: Present: CTAB. Absent: accessory muscle use, rales, rhonchi, wheezes - Cardiovascular Cardiovascular exam: Present: RRR, +S1, +S2. Absent: diastolic murmur, gallop, rubs, systolic murmur - GI/Abdominal GI/Abdominal exam: Present: normal bowel sounds, soft, no peritoneal signs. Absent: distended, tenderness - Extremities Exam Extremities exam: Present: warm, radial pulses palpable and symmetrical. Absent : calf tenderness, cyanotic, pedal edema - Neurological Exam Neurological exam: Present: CN II-XII intact, oriented X3, no focal deficits. Absent: pronater drift, facial droop, speech deficit - Skin Skin exam: Present: dry, intact Internal Medicine: Result - Labs CBC & Chem 7: 09/09/17 05:20 09/09/17 05:20 Labs: Short CBC 09/08/17 09/09/17 Range/Units 08:28 05:20 WBC 4.5 5.1 (4.3-11.1) K/mcL Hgb 10.0 L D 10.5 L (11.5-15.4) g/dL Hct 29.5 L 30.8 L (35.3-44.9) % Plt Count 175 185 (140-400) K/mcL Neutrophils # 2.7 2.9 (1.6-8.9) K/mcL BMP 09/09/17 05:20 Sodium 144 Potassium 3.6 Chloride 114 H Carbon Dioxide 24 BUN 5 L Creatinine 0.74 Glucose 94 Calcium 8.5 L Consult Discharge Plan - Plan Referrals: Kaycee Wu MD [Primary Care Provider] -
[2017-09-10 05:28] LABS: Basophils % 0.5 %; Hematocrit 30.2 % (35.3-44.9); Hemoglobin 10.3 g/dL (11.5-15.4); Immature Granulocytes % 0.3 % (0-4); Lymphocytes # 1.4 K/mcL (0.6-4.6); Mean Corpuscular HGB Conc 34.1 g/dL (31.6-35.5); Mean Corpuscular Hemoglobin 33.3 pg (28.0-33.3); Mean Corpuscular Volume 97.7 fL (83.0-100.0); Mean Platelet Volume 10.4 fL (9.4-12.4); Monocytes # 0.3 K/mcL (0.0-1.3); Monocytes % 5.3 %; Neutrophils # 4.3 K/mcL (1.6-8.9); Platelet Count 167 K/mcL (140-400); Red Blood Count 3.09 M/mcL (3.82-4.97); Red Cell Distribution Width 12.7 % (11.5-14.5); Segmented Neutrophils % 70.9 %
[2017-09-10 05:38] LABS: INR 1.1; Prothrombin Time 11.4 Seconds (9.4-12.1)
[2017-09-10 05:43] LABS: BUN/Creatinine Ratio 9 (6-26); Blood Urea Nitrogen 7 mg/dL (8-23); Calcium 8.8 mg/dL (8.6-10.3); Carbon Dioxide 23 mEq/L (23-29); Chloride 112 mEq/L (98-107); Glucose 107 mg/dL (70-105); Osmolality,Calculated 292 (280-300); Potassium 3.2 mEq/L (3.5-5.1); Sodium 142 mEq/L (136-145); eGFR For African Americans > 60 (> 60); eGFR For Non-African Americans > 60 (> 60)
[2017-09-10] MEDS: Cholestyramine 4 GM POWD.PACK PO SCH ×2 (05:58→12:21)
[2017-09-10] MEDS: Aspirin 81 MG TAB.CHEW PO SCH (07:28)
[2017-09-10] MEDS: Ranolazine 500 MG TAB.ER.12H PO SCH (07:28)
[2017-09-10] MEDS: Multivit/Ca/Min/Fe/FA 1 TAB TABLET PO SCH (07:28)
[2017-09-10] MEDS: Cyanocobalamin (B-12) 1,000 MCG TABLET PO SCH (07:28)
[2017-09-10] MEDS: Lactobacillus 1 EACH CAP.SPRINK PO SCH (07:28)
--- NOTE | 2017-09-10 08:24 | Discharge Summary ---
- NOTES TO OUTPATIENT PROVIDER Notes to Outpatient Provider: Stools have improved- negative for C diff, she will need to continue with cholestyramine Date of Encounter: 09/10/17 Time of Encounter: 15:41 - Discharge Diagnosis (1) Pancreatitis Priority: Primary Status: Acute Qualifiers: Chronicity: acute Pancreatitis type: unspecified pancreatitis type Acute pancreatitis complication: unspecified Qualified Code(s): K85.90 - Acute pancreatitis without necrosis or infection, unspecified (2) Clostridium difficile infection Priority: Secondary Status: Acute (3) CAD (coronary artery disease) Priority: Secondary Status: Chronic (4) Diarrhea Priority: Primary Status: Acute Qualifiers: Diarrhea type: unspecified type Qualified Code(s): R19.7 - Diarrhea, unspecified (5) Colitis Priority: Primary Status: Acute Hospital course: Ms. Beltran is a 77 year old female past medical history of CAD DVT GERD hyperlipidemia hypertension peripheral vascular disease represent presented to the ED with persistent diarrhea and mild epigastric pain for more than a month. She was originally diagnosed with C. difficile and is on third round of antibiotics with oral vancomycin. She had no improvement and her symptoms especially diarrhea and began to experience generalized weakness and presented to the ER with the above complaints. CT of abdomen and pelvis with questionable mild colitis pancreas was unremarkable lipase was elevated to 30 on admission however has decreased. She was given bowel rest and IV fluids. GI panel was completed negative for occult blood no C. difficile was noted. Lab work showed no leukocytosis she was afebrile. She did have a cholecystectomy completed in February Patient continued to complain of watery stools however abdominal pain did improve. She was initiated on Cholestyramine twice a day at meals patient would not take medication. The frequency of her stools did decrease and they became more formed she was tolerating oral intake she does complain of nausea when she drinks water that she states this is chronic. She was seen by GI who advised patient to continue with Cholestyramine as well as oral vancomycin. Advised patient to follow-up with PCP and to continue medications she verbalized understanding. She is hemodynamic be stable and ready for discharge at this time. - Time Spent with Patient Total time spent providing and/or coordinating discharge services: - Discharge Medications Prescriptions: Cholestyramine 4 gm PO TIDAC #30 [email or web address] Home Medications: Aspirin 81 mg PO DAILY 09/15/16 [History] Clopidogrel [Plavix] 75 mg PO DAILY 09/15/16 [History] Omeprazole [PriLOSEC] 40 mg PO DAILY 09/15/16 [History] Ranolazine [Ranexa] 1,000 mg PO BID 09/15/16 [History] Cyanocobalamin (Vitamin B-12) [Vitamin B12] 1,000 mcg PO DAILY 02/13/17 [History ] Multivit-Min/Iron/Folic/Lutein [Centrum Silver Women Tablet] 1 tab PO DAILY 07/28 [History] Nitroglycerin [Nitrostat] 0.4 mg PO Q5M PRN 02/13/17 [History] Vilazodone HCl [Viibryd] 40 mg PO DAILY 02/13/17 [History] Donepezil [Aricept] 10 mg PO HS 09/06/17 [History] Vancomycin HCl 125 mg PO TAPER MDD SEE NOTE 09/06/17 [History] Cholestyramine 4 gm PO TIDAC #30 powd.pack 09/10/17 [Rx] Allergies/Adverse Reactions: 3 Allergy/AdvReac Type Severity Reaction Status Date / Time prednisone Allergy Swelling Verified 09/06/17 18:26 of Lip/Tongue/Throat IVP DYE AdvReac See Uncoded 09/06/17 14:39 Comments Date of admission: 09/07/17 12:58 Primary care physician: Kaycee Nava Discharging clinician: Rupinder Andrews Anticipated date of discharge: 09/10/17 - Constitutional Vitals: Temp Pulse Resp BP Pulse Ox 98.2 F 61 16 100/58 99 09/10/17 07:05 09/10/17 07:05 09/10/17 07:05 09/10/17 07:05 09/10/17 07:35 General appearance: Present: A&O X 3 - Head Head exam: Present: atraumatic, normocephalic - Eye Eye exam: Present: PERRL, conjuntiva pink, sclera anicteric Pupils: Present: PERRL - Neck Neck exam general surgery: Present: supple, trachea midline. Absent: lymphadenopathy - Respiratory Respiratory exam: Present: CTAB. Absent: accessory muscle use, rales, rhonchi, wheezes - Cardiovascular Cardiovascular exam: Present: RRR, +S1, +S2. Absent: diastolic murmur, gallop, rubs, systolic murmur - GI/Abdominal GI/Abdominal exam: Present: normal bowel sounds, soft, no peritoneal signs. Absent: distended, tenderness - Extremities Exam Extremities exam: Present: warm, radial pulses palpable and symmetrical. Absent : calf tenderness, cyanotic, pedal edema - Neurological Exam Neurological exam: Present: CN II-XII intact, oriented X3, no focal deficits. Absent: pronater drift, facial droop, speech deficit - Skin Skin exam: Present: dry, intact - Patient Status Disposition: Home, Self-Care Condition: Good - Discharge Instructions Instructions: Pancreatitis (DC), Clostridium Difficile Infection (DC) Follow Up With: Kaycee Wu MD [Primary Care Provider] - - Diet and Activity Activity: increase activity as tolerated Diet: advance to your usual diet
[2017-09-10] MEDS ORDERED: Vancomycin Oral Soln 250 MG/5 ML UDC PO SCH (09:00)
[2017-09-10] MEDS: (Vilazodone Hcl [Viibryd] 40 MG) PO SCH (09:22)
--- NOTE | 2017-09-10 12:40 | Gastroenterology Consult Note ---
<Cb Birmingham Raza - Last Filed: 09/10/17 12:37> Date of Encounter: 09/10/17 Time of Encounter: 11:30 - Assessment and plan (1) Clostridium difficile infection Status: Acute Assessment and plan: Patient has been treated with Flagyl and PO Vancomycin. She was recently started on PO Vanco taper as outpatient. C diff testing here was negative. Complete PO Vanco taper. Continue Probiotics. (2) Diarrhea Status: Acute Assessment and plan: Likely secondary to Cdiff, but history of cholecystectomy could be contributing as well. Recommend Cholestyramine BID at meal times. Pt agreeable to trying the medication again if it is not mixed with water. Qualifiers: Diarrhea type: unspecified type Qualified Code(s): R19.7 - Diarrhea, unspecified (3) S/P cholecystectomy Status: Acute - Time Spent With Patient Total time spent is greater than 50% in coordination of care (as documented) at patient's floor/unit and/or counseling patient: GI History of Present Illness - Data of Consult Patient: new to practice Consult date: 09/10/17 Requesting Physician: Jerry Ramirez CNP - Consult Narrative Reason for consult: Diarrhea History of present illness: Ms. Beltran is a 77 year old female with PMHx of CAD, DVT, GERD, HLD, HTN, peripheral vascular disease who presented to the ED with persistent diarrhea and mild epigastric pain for more than a month. She was diagnosed C. difficile and this is her third round of antibiotics with oral vancomycin. She never had any improvement in her symptom especially diarrhea and a started to feel generalized weakness therefore decided to come to ER. She stated average frequency of diarrhea 5-8 per day and sometimes even every 15-[address] A/P with questionable mild mural thickening of the distal large bowel, suggesting possible mild colitis, pancreas was unremarkable. Lipase was elevated on admission to 230 and decreased to 22 on 09/08. Procedures: Colonoscopy 12/08/2014 Dr. Gomez: External hemorrhoids, diverticulosis. NSAIDs: ASA Anticoagulation: Plavix Past Med Surg Social Fam HX - Past Medical History Medical history: coronary artery disease, DVT, GERD, hyperlipidemia, hypertension, peripheral artery disease Psychiatric history: anxiety - Social History Smoking Status: Current every day smoker Packs per day: 1 Smokeless Tobacco Status: No Alcohol use: none Drug use: none - Family History Mother Name: Ira Gamino Living Status: Age at : 91 Cause of : PNE Father Name: Emanuel Gamino Living Status: Age at : 93 Cause of : dementia Hx Family Respiratory Disorders: Yes - Gastrointestinal Gastrointestinal: Present: as per HPI - Constitutional Constitutional: as per HPI - EENT Eyes: as per HPI Ears: Present: as per HPI Nose, mouth and throat: Present: as per HPI - Cardiovascular Cardiovascular ROS: Present: as per HPI - Respiratory Respiratory IM: Present: as per HPI - Genitourinary Genitourinary: Absent: change in color, Urinary frequency - Neurological ROS Neurological GI: Present: as per HPI - Hematologic/Lymphatic Hematologic/Lymphatic pediatric: Present: as per HPI - Musculoskeletal Musculoskeletal ROS GI: Present: as per HPI - Integumentary Integumentary GI: Present: as per HPI - Psychiatric ROS Psychiatric GI: Present: as per HPI - Endocrine Endocrine IM: Present: as per HPI - Constitutional Vitals: Temp Pulse Resp BP Pulse Ox 98.2 F 61 16 100/58 99 09/10/17 07:05 09/10/17 07:05 09/10/17 07:05 09/10/17 07:05 09/10/17 07:35 General appearance: Present: cooperative, A&O X 3, no acute distress, answers questions appropriately - Head Head exam: Present: atraumatic, normocephalic - Eye Eye exam: Present: normal appearance, sclera anicteric - ENT ENT exam: Present: mucous membranes moist - Neck Neck exam general surgery: Present: normal inspection, trachea midline - Respiratory Respiratory exam: Present: CTAB. Absent: rales, rhonchi - Cardiovascular Cardiovascular exam: Present: RRR, +S1, +S2 - GI/Abdominal GI/Abdominal exam: Present: soft, no peritoneal signs. Absent: distended, firm , guarding, tenderness - Rectal Rectal exam: Present: deferred - Extremities Exam Extremities exam: Present: warm - Neurological Exam Neurological exam: Present: no focal deficits - Psychiatric Psychiatric exam: Present: normal affect, normal mood - Skin Skin exam: Present: dry, intact, normal color, warm Results - Labs CBC & Chem 7: 09/10/17 04:23 09/10/17 04:23 Labs: Last Result Calcium 8.8 mg/dL (8.6-10.3) 09/10/17 04:23 Troponin I < 0.03 ng/mL (< 0.04) 09/06/17 15:10 Stool Occult Blood Negative (Negative) 09/08/17 18:50 Entire Visit Hgb 10.3 g/dL (11.5-15.4) L 09/10/17 04:23 Hct 30.2 % (35.3-44.9) L 09/10/17 04:23 PT 11.4 Seconds (9.4-12.1) 09/10/17 04:23 Total Bilirubin 0.5 mg/dL (0.3-1.0) 09/06/17 15:10 AST 16 Units/L (13-39) 09/06/17 15:10 ALT 14 Units/L (7-52) 09/06/17 15:10 Lipase 22 Units/L (11-82) 09/08/17 08:28 - ABG ABG results: PT/INR, D-dimer PT 11.4 Seconds (9.4-12.1) 09/10/17 04:23 Consult Discharge Plan - Plan Instructions: Pancreatitis (DC), Clostridium Difficile Infection (DC) Referrals: Kaycee Wu MD [Primary Care Provider] - 09/12/17 1:00 pm Prescriptions: Cholestyramine 4 gm PO TIDAC #30 [email or web address] <Maycol Thomas - Last Filed: 09/12/17 10:11> Date of Encounter: 09/10/17 - Time Spent With Patient Total time spent is greater than 50% in coordination of care (as documented) at patient's floor/unit and/or counseling patient: GI History of Present Illness - Data of Consult Requesting Physician: Jerry Ramirez CNP - Consult Narrative History of present illness: Ms. Beltran is a 77 year old female - Constitutional Vitals: Temp Pulse Resp BP Pulse Ox 98.7 F 108 16 128/84 93 09/10/17 13:14 09/10/17 13:14 09/10/17 13:14 09/10/17 13:14 09/10/17 13:14 Results - Labs CBC & Chem 7: 09/10/17 04:23 09/10/17 04:23 Labs: Last Result Calcium 8.8 mg/dL (8.6-10.3) 09/10/17 04:23 Troponin I < 0.03 ng/mL (< 0.04) 09/06/17 15:10 Stool Occult Blood Negative (Negative) 09/08/17 18:50 Entire Visit Hgb 10.3 g/dL (11.5-15.4) L 09/10/17 04:23 Hct 30.2 % (35.3-44.9) L 09/10/17 04:23 PT 11.4 Seconds (9.4-12.1) 09/10/17 04:23 Total Bilirubin 0.5 mg/dL (0.3-1.0) 09/06/17 15:10 AST 16 Units/L (13-39) 09/06/17 15:10 ALT 14 Units/L (7-52) 09/06/17 15:10 Lipase 22 Units/L (11-82) 09/08/17 08:28 - ABG ABG results: PT/INR, D-dimer PT 11.4 Seconds (9.4-12.1) 09/10/17 04:23 - Attending Attestation Patient with a history of C difficile colitis now asymptomatic from that standpoint on Vancomycin. Continue present therapy and follow up at the office May need colonoscopy as outpatient as last one in 2014 and abnormality [address] CT. I have personally performed a face to face evaluation on this patient. I have reviewed and agree with the care plan. History and Exam by me shows:
[2017-09-10 13:15] VITALS: BP 128/84
[2017-09-13] MEDS ORDERED: Vancomycin Oral Soln 250 MG/5 ML UDC PO SCH (09:00)
[2017-09-20] MEDS ORDERED: Vancomycin Oral Soln 250 MG/5 ML UDC PO SCH (09:00)
== END 2017-09-10 15:53 | disposition home or self-care (01) | DRG 439 ==
LOC: 3BNU 12:41 → EMEROO 12:41 → 3BNU 20:16
PROVIDERS: ADMIT Nurse Practitioner Family; ATTEND Nurse Practitioner Family